=== PATIENT | male | born 1955 | race Caucasian/White ===

== ENCOUNTER → 2017-04-11 | Day surgery (SDC) | payer OTHER ==
[~2017-04-11] MED LIST: LACTATED RINGER'S 1000 ML INJ 1,000 ML ONE; MULT-135 PO; OMEG100037 PO; ONDANSETRON HCL 4 MG/2 ML VIAL IV PUSH ONE; PRIL20CA9 PO; PROPOFOL 500 MG/50 ML BTL IV ONE; VITA10006 PO
--- NOTE | 2017-04-11 14:06 | GIPROC ---
[facility] [address] [facility], [address] COLONOSCOPY PROCEDURE REPORT EXAM DATE: 04/11/2017 PATIENT NAME: Daniel Noguera MR #: [id number] BIRTHDATE: 1955 ENDOSCOPIST: Maria Antonia Lopez MD ORDER #: [id number] OPTICAL MANAGER: STATUS: outpatient INDICATIONS: The patient is a 61 yr old male here for a colonoscopy due to high risk patient with personal history of colonic polyps PROCEDURE PERFORMED: Colonoscopy with polypectomy MEDICATIONS: None and Per Anesthesia. PREP QUALITY: good ESTIMATED BLOOD LOSS: None CONSENT: The patient understands the risks and benefits of the procedure and understands that these risks include, but are not limited to: sedation, allergic reaction, infection, perforation and/or bleeding. Alternative means of evaluation and treatment include, among others: physical exam, x-rays, and/or surgical intervention. The patient elects to proceed with this endoscopic procedure. medical equipment was checked for proper function. Hand hygiene and appropriate measures for infection prevention was taken. After the risks, benefits and alternatives of the procedure were thoroughly explained, Informed consent was verified, confirmed and timeout was successfully executed by the treatment team. A digital exam revealed external hemorrhoids The EC-2990Li ([id number]) endoscope was introduced through the anus and advanced to the cecum, which was identified by both the appendix and ileocecal valve. The instrument was then slowly withdrawn as the colon was fully examined. COLON FINDINGS: Polyp sessile rectosigmoid - 7 mm-hot snare poylpectomy with complete removal. Retroflexed views revealed internal hemorrhoids and Retroflexed views revealed medium internal hemorrhoids The scope was then completely withdrawn from the patient and the procedure terminated. PROCEDURE WITHDRAWAL TIME:6minutes ADVERSE EVENTS: There were no complications. IMPRESSIONS: 1. Polyp sessile rectosigmoid - 7 mm-hot snare poylpectomy with complete removal 2. Retroflexed views revealed internal hemorrhoids 3. Retroflexed views revealed medium internal hemorrhoids 4. Revealed external hemorrhoids RECOMMENDATIONS: 1. Await biopsy results. Biopsy results will not be ready for 7-10 days. If you don't hear from us in two weeks, call our office for results. 2. Benefiber 2 tsp daily 3. Probiotics from any [facility] or health food store 4. Yearly rectal exams RECALL: Colonoscopy, pending biopsy results Maria Antonia Lopez MD eSigned: Maria Antonia Lopez MD 04/11/2017 2:05 PM cc: Jane Agrawal, [facility] He M.D.
--- NOTE | 2017-04-11 14:10 | GIPROC ---
[facility] [address] [facility], [address] EGD PROCEDURE REPORT EXAM DATE: 04/11/2017 PATIENT NAME: Daniel Noguera MR #: [id number] BIRTHDATE: 1955 ATTENDING: Maria Antonia Lopez MD ORDER #: [id number] VENDOR MANAGER: STATUS: outpatient INDICATIONS: The patient is a 61 yr old male here for an EGD due to duodenitis/nodular mucosa duodenal bulb-biopsy gastritis antrum-biopsy esophagitis distal esophagus -biopsy PROCEDURE PERFORMED: EGD w/ biopsy MEDICATIONS: None and Per Anesthesia. TOPICAL ANESTHETIC: CONSENT: The patient understands the risks and benefits of the procedure and understands that these risks include, but are not limited to: sedation, allergic reaction, infection, perforation and/or bleeding. Alternative means of evaluation and treatment include, among others: physical exam, x-rays, and/or surgical intervention. The patient elects to proceed with this endoscopic procedure. medical equipment was checked for proper function. Hand hygiene and appropriate measures for infection prevention was taken. After the risks, benefits and alternatives of the procedure were thoroughly explained, Informed consent was verified, confirmed and timeout was successfully executed by the treatment team. The patient was anesthetized with topical anesthesia and the EC-2990Li ([id number]) endoscope was introduced through the mouth and advanced to the second portion of the duodenum. Retroflexed views revealed a hiatal hernia The gastroscope was then slowly withdrawn and removed. Gastritis antrum-biopsy esophagitis distal esophagus-biopsy nodular mucosa/duodenitis duodenal bulb-biopsy. ADVERSE EVENTS: There were no complications. IMPRESSIONS: 1. Gastritis antrum-biopsy esophagitis distal esophagus-biopsy nodular mucosa/duodenitis duodenal bulb-biopsy 2. Retroflexed views revealed a hiatal hernia RECOMMENDATIONS: 1. Await biopsy results. Biopsy results will not be ready for 7-10 days. If you don't hear from us in two weeks, call our office for biopsy results. 2. Anti-reflux regimen 3. Continue PPI PATIENT CONDITION: stable DISPOSITION: Home REPEAT EXAM: EGD pending biopsy results Maria Antonia Lopez MD eSigned: Maria Antonia Lopez MD 04/11/2017 2:10 PM cc: Jane Agrawal [facility] Mese[facility] He M.D. PATIENT NAME: Daniel Noguera MR#: [id number]
== END | disposition home or self-care (01) ==
LOC: ESDC 10:52
PROVIDERS: ATTEND Internal Medicine Gastroenterology
DX: Z12.11 Encounter for screening for malignant neoplasm of colon (principal); Z86.010 Personal history of colon polyps; D12.5 Benign neoplasm of sigmoid colon; K64.8 Other hemorrhoids; K64.4 Residual hemorrhoidal skin tags; K29.80 Duodenitis without bleeding; K29.70 Gastritis, unspecified, without bleeding; K20.9 Esophagitis, unspecified; K44.9 Diaphragmatic hernia without obstruction or gangrene
CPT/HCPCS: 00740; 00810; 43239; 45385; 88305; 88312; J2405; J3010; J7120

== ENCOUNTER → 2017-10-10 | Outpatient (CLI) | payer OTHER ==
[~2017-10-10] MED LIST changes: -LACTATED RINGER'S 1000 ML INJ 1,000 ML ONE; -ONDANSETRON HCL 4 MG/2 ML VIAL IV PUSH ONE; -PROPOFOL 500 MG/50 ML BTL IV ONE
--- NOTE | 2017-10-15 11:27 | RSPPFT ---
DATE OF PROCEDURE: 10/10/17 COMMENTS: Spirometry with normal flow rates and ratios. Slow vital capacity is 97% of predicted. TLC is 86%. Diffusion capacity is normal. IMPRESSION: 1. No evidence of airways obstruction. 2. No evidence of airways restriction. 3. Normal diffusion capacity.
== END ==
LOC: HRSP 10-09 09:21
PROVIDERS: ATTEND Internal Medicine Sleep Medicine
DX: R06.00 Dyspnea, unspecified (principal)
CPT/HCPCS: 94060; 94726; 94729

== ENCOUNTER 2017-10-19 06:03 | Day surgery (SDC) | payer OTHER ==
[~2017-10-19] VITALS: Ht 175.3 cm; Wt 85.5 kg
[2017-10-19 06:42] VITALS: BP 158/106; PULSE 87; RESP 20; TEMP 98.3; O2SAT 97
[2017-10-19] MEDS ORDERED: PRIL20TA2 PO (06:44)
[2017-10-19] MEDS ORDERED: SODIUM CHLOR 0.45% 1000 ML INJ 1,000 ML IV SCH (07:00)
[2017-10-19 07:27] LABS: AUTOMATED NEUTROPHIL # 3.4 TH/MM3 (1.8-7.7); BASOPHIL # 0.1 TH/MM3 (0-0.2); BASOPHIL % 0.9 % (0.0-2.0); EOSINOPHIL # 0.2 TH/MM3 (0-0.4); HEMATOCRIT 46.3 % (39.0-51.0); HEMOGLOBIN 15.9 GM/DL (13.0-17.0); LYMPH % 25.4 % (9.0-44.0); LYMPHOCYTE # 1.5 TH/MM3 (1.0-4.8); MEAN CELL VOLUME 88.4 FL (80.0-100.0); MEAN CORPUSCULAR HEMOGLOBIN 30.4 PG (27.0-34.0); MEAN CORPUSCULAR HGB CONC 34.4 % (32.0-36.0); MEAN PLATELET VOLUME 7.1 FL (7.0-11.0); MONO % 11.1 % (0.0-8.0); MONOCYTE # 0.6 TH/MM3 (0-0.9); NEUT % 58.6 % (16.0-70.0); PLATELET COUNT 240 TH/MM3 (150-450); RED BLOOD COUNT 5.24 MIL/MM3 (4.50-5.90); RED CELL DISTRIBUTION WIDTH 13.1 % (11.6-17.2); WHITE BLOOD COUNT 5.8 TH/MM3 (4.0-11.0)
[2017-10-19 07:36] LABS: PROTHROMBIN TIME - PATIENT 10.5 SEC (9.8-11.6)
[2017-10-19] MEDS ORDERED: DO NOT ADM ANY ANTICOAGULANT DRUGS PRN (08:40)
[2017-10-19] MEDS ORDERED: MIDAZOLAM HCL 2 MG/2 ML VIAL ONE (08:54)
--- NOTE | 2017-10-19 08:57 | MR ---
cc: LILLIE MOREIRA M.D. DATE 10/19/2017 PROCEDURE Fiberoptic bronchoscopy flexible. REASON FOR BRONCHOSCOPY Hemoptysis, rule out underlying malignancy, inflammatory process or other. DETAILS OF PROCEDURE Fiberoptic bronchoscopy performed via LMA. Vocal cords intact. Trachea mildly hyperemic. Jaimee sharp. Right main stem bronchus, right upper, middle and lower lobes, left main bronchus, left upper and lower lobe inspected. No obstructive pathology or mass lesion seen. Some heme staining in the right upper lobe noted. Washings obtained from both sides of the tracheobronchial tree for routine, TB and fungal cultures as well as cytological examination. Cytologic brush biopsy right upper lobe obtained for cytological exam. Procedure well-tolerated. Patient transferred to Recovery in stable condition. IMPRESSION 1. Mild to moderate tracheobronchitis. 2. No obstruction or mass lesion. 3. Samples obtained as above. 4. Procedure well-tolerated. 5. Patient transferred to Recovery in stable condition. MD GALEN Zaidi/WALT /8:28 AM /8:37 AM
[2017-10-19 09:20] VITALS: BP 115/77; PULSE 77; RESP 18; TEMP 98.1; O2SAT 93
[2017-10-19 09:50] VITALS: BP 123/79; PULSE 78; RESP 18; O2SAT 92
[2017-10-19 10:20] VITALS: BP 122/79; PULSE 73; RESP 18; O2SAT 93
--- NOTE | 2017-10-19 19:26 | EKG ---
Date Performed: 10/19/2017 Time Performed: 07:02:04 PTAGE: 62 years EKG: Sinus rhythm Since the prior tracing, there has been no significant change ABNORMAL ECG PREVIOUS TRACING : 06/15/2005 02.30 DOCTOR: Rene Herrera Interpretating Date/Time 10/19/2017 19:25:50
== END 2017-10-19 10:45 | disposition home or self-care (01) ==
LOC: HROP 06:03 → HRIP 06:04 → HROP 10:45
PROVIDERS: ATTEND Internal Medicine Sleep Medicine
DX: R04.2 Hemoptysis (principal); J40 Bronchitis, not specified as acute or chronic; J18.9 Pneumonia, unspecified organism; I10 Essential (primary) hypertension; R05 Cough; K21.9 Gastro-esophageal reflux disease without esophagitis; Z01.818 Encounter for other preprocedural examination; Z01.810 Encounter for preprocedural cardiovascular examination
CPT/HCPCS: 00520; 31625; 85025; 85610; 85730; 87015; 87070; 87102; 87116; 87205; 87206; 88112; 93005; J2250; J3010